=== PATIENT | female | born 1990 | race Caucasian/White ===

== ENCOUNTER 2018-12-11 12:14 | Emergency (ER) | payer OTHER ==
[~2018-12-11] VITALS: Ht 170.2 cm; Wt 127.0 kg
[~2018-12-11 12:14] MED LIST: ADVAIR 250-501 EACH INH; BIOTIN-D1 GM; CLARITIN10 MG; CRYSELLE1 EACH PO; FLONASE 0.05%50 MCG NASAL; GLUMETZA500; IBUPROFEN 800800 MG PO; KCLP 20 MEQ2 MEQ/ML; LAMICTAL XR300 MG PO; LEXAPRO20 MG PO; MAGNESIUM250 M1; PREVACID15 MG; PROBIOTIC1 EAC1; QUESTRAN PACKET4 GM PO; VITAMIN D-32000 UNIT; VYVANSE70 MG PO; ZINC10 MG; ZOFRAN ODT4 MG PO; [UNRECOGNIZED DRUG - OTHER]
[2018-12-11] MEDS ORDERED: ADVAIR HFA 115-12 G1 INH (12:27)
[2018-12-11] MEDS ORDERED: NEXIUM40 MG PO (12:29)
[2018-12-11] MEDS ORDERED: FOCALIN XR30 MG PO (12:29)
[2018-12-11 13:45] VITALS: BP 137/78
[2018-12-11] MEDS ORDERED: EPIPEN 2-P0.3 MG/0.3 IM (13:53)
== END 2018-12-11 13:45 | disposition home or self-care (01) ==
LOC: ER 12:14
DX: T78.09XA Anaphylactic reaction due to other food products, initial encounter (principal); T78.49XA Other allergy, initial encounter; J45.909 Unspecified asthma, uncomplicated; Z88.2 Allergy status to sulfonamides; Z88.8 Allergy status to other drugs, medicaments and biological substances

== ENCOUNTER 2019-05-04 15:50 | Emergency (ER) | payer OTHER ==
[~2019-05-04] VITALS: Ht 170.2 cm; Wt 124.7 kg
[~2019-05-04 15:50] MED LIST changes: +ADVAIR HFA 115-12 G1 INH; +EPIPEN 2-P0.3 MG/0.3 IM; +FOCALIN XR30 MG PO; +NEXIUM40 MG PO
[2019-05-04] MEDS ORDERED: PROMS25 WY RECTAL ×2 (16:40→17:50)
[2019-05-04 17:30] VITALS: BP 151/91
== END 2019-05-04 17:30 | disposition home or self-care (01) ==
LOC: ER 15:50
DX: G43.809 Other migraine, not intractable, without status migrainosus (principal); J45.909 Unspecified asthma, uncomplicated; Z88.2 Allergy status to sulfonamides